=== PATIENT | male | born 1970 | race African-American/Black ===

== ENCOUNTER → 2019-11-07 | Day surgery (SDC) | payer BC, OTHER ==
[2019-11-06 12:46] VITALS: BMI 28.2
[2019-11-07 12:59] VITALS: TEMP 97.7
[2019-11-07 13:35] VITALS: BP 118/67; PULSE 62
== END | disposition home or self-care (01) ==
LOC: JASU-ENDO 05:07
PROVIDERS: ATTEND Internal Medicine Gastroenterology
PROC: 0DJD8ZZ Inspection of Lower Intestinal Tract, Via Natural or Artificial Opening Endoscopic (ICD-10-PCS; principal; 2019-11-07 12:30)
DX: Z86.010 Personal history of colon polyps (principal); K64.8 Other hemorrhoids

== ENCOUNTER 2020-06-04 05:52 | Day surgery (SDC) | payer BC, OTHER ==
[2020-05-27 08:58] VITALS: BMI 28.8
[~2020-06-04 05:52] MED LIST: ceFAZolin 2 GRAM PREMIX BAG IVPB ONE
[2020-06-04] MEDS ORDERED: EPINEPHrine 1:1,000 1 MG/1 ML - 30ML VIAL (INJECTION) ONE (07:07)
[2020-06-04] MEDS ORDERED: MIDAZOLAM HCL 2 MG/2 ML SINGLE DOSE VIAL ONE (07:20)
[2020-06-04] MEDS ORDERED: ROPIVACAINE HCL 0.5% 30ML VIAL ONE (07:20)
[2020-06-04] MEDS ORDERED: PROPOFOL 20 ML ONE ×3 (07:41)
[2020-06-04] MEDS ORDERED: SUCCINYLCHOLINE CHLORIDE 200 MG/10 ML SYRINGE ONE (07:41)
[2020-06-04] MEDS ORDERED: ceFAZolin 2 GRAM PREMIX BAG IVPB ONE (08:00)
[2020-06-04] MEDS ORDERED: oxyCODONE HCL 5 MG TABLET PO PRN ×2 (08:53)
[2020-06-04] MEDS ORDERED: ONDANSETRON 4 MG/2 ML VIAL IVPUSH PRN (08:53)
[2020-06-04 09:20] VITALS: TEMP 98.2
[2020-06-04 10:44] VITALS: BP 120/66; PULSE 74
== END 2020-06-04 11:25 | disposition home or self-care (01) ==
LOC: FASU 05:52
PROVIDERS: ATTEND Orthopaedic Surgery
PROC: 0RHJ44Z Insertion of Internal Fixation Device into Right Shoulder Joint, Percutaneous Endoscopic Approach (ICD-10-PCS; 2020-06-04)
PROC: 0RNJ4ZZ Release Right Shoulder Joint, Percutaneous Endoscopic Approach (ICD-10-PCS; 2020-06-04)
PROC: 0RNJ4ZZ Release Right Shoulder Joint, Percutaneous Endoscopic Approach (ICD-10-PCS; 2020-06-04)
PROC: 0MM14ZZ Reattachment of Right Shoulder Bursa and Ligament, Percutaneous Endoscopic Approach (ICD-10-PCS; 2020-06-04)
PROC: 0LM14ZZ Reattachment of Right Shoulder Tendon, Percutaneous Endoscopic Approach (ICD-10-PCS; principal; 2020-06-04 07:30)
DX: M75.121 Complete rotator cuff tear or rupture of right shoulder, not specified as traumatic (principal); M75.01 Adhesive capsulitis of right shoulder; M75.41 Impingement syndrome of right shoulder; M19.011 Primary osteoarthritis, right shoulder; S43.431A Superior glenoid labrum lesion of right shoulder, initial encounter; X58.XXXA Exposure to other specified factors, initial encounter; Y92.9 Unspecified place or not applicable; Y93.9 Activity, unspecified
CPT/HCPCS: 29807; 29823; 29824; 29826; 29827; C1713; 88304-TC